=== PATIENT | male | born 1975 | race Caucasian/White ===

== ENCOUNTER 2018-07-10 16:21 | Emergency (ER) | payer OTHER ==
--- NOTE | 2018-07-10 16:29 | ER Report ---
History and Physical Time Seen By MD: 16:30 HPI/ROS CHIEF COMPLAINT: Laceration HISTORY OF PRESENT ILLNESS: 43-year-old male patient presents to emergency room with complaint of laceration. Patient states that he was working up in the was using a chainsaw. He states that the chainsaw brushed up against his knee. States it felt like he got slapped on the knee. He denied having any pain. He looked down and noticed a small spot of blood on his pants. At that time he did take a look and noted that he had a laceration on his knee. Patient states that he is unsure of his last tetanus shot. Patient states that he had very minimal bleeding. Allergies: Coded Allergies: No Known Drug Allergies (Unverified , 07/10/18) Home Meds Reported Medications Omeprazole Magnesium (PRILOSEC OTC) 20 Mg Tablet.dr, 1 TAB PO QDAY, TAB 07/10/18 Past Medical/Surgical History Patient has a past medical history of occasional alcohol use. Patient denies any surgical history. Reviewed Nurses Notes: Yes Constitutional Vital Sign - Last 24 Hours 07/10/18 07/10/18 16:27 17:00 Temp 97.7 Pulse 96 Resp 20 B/P (MAP) 130/94 109/82 (91) Pulse Ox 96 O2 Delivery Room Air Physical Exam General appearance: Alert no distress. Respiratory: Chest is non tender, lungs are clear to auscultation. Cardiac: Regular rate and rhythm. Skin: Patient does have a 2 similar laceration to the anterior aspect of the left knee. It does go into the subcutaneous tissue. It does not go down to the bone. DIFFERENTIAL DIAGNOSIS: After history and physical exam differential diagnosis was considered for laceration. Medical Decision Making ED Course/Re-evaluation ED Course Patient was admitted to an exam room, history of physical obtained. Differential diagnoses were considered. On examination patient has 2 cm laceration to the anterior aspect of the right knee. Does go into the subcutaneous tissue. However does not go deeper to the bone. The area was anesthetized, cleaned and repaired as described below. We'll go ahead and discharge patient home at this time. He is to change dressing as needed. His monitor for any signs of infection. Patient is to follow-up with his primary care provider in 7-10 days for suture removal. He is return to the emergency room if condition worsens. Patient verbalized understanding and agreement with plan. Procedure: Laceration repair. Verbal consent was obtained from the patient. The 2 cm laceration on the right knee was anesthetized in the usual fashion. The wound was scrubbed, draped and explored to its base with a gloved finger. There were no deep structures involved. No tendon injury was identified. The wound was repaired with 6 simple interrupted sutures using 4-0 Prolene material. The wound repair was simple. The procedure was performed by myself. Decision to Disposition Date: Jul 10, 2018 Decision to Disposition Time: 17:03 Depart Departure Latest Vital Signs Vital Signs Date Time Temp Pulse Resp B/P (MAP) Pulse Ox O2 Delivery O2 Flow Rate FiO2 07/10/18 17:00 109/82 (91) 07/10/18 16:27 97.7 96 20 96 Room Air Impression: Primary Impression: Knee laceration Condition: Improved Disposition: HOME OR SELF-CARE Patient Instructions: Laceration (ED) Additional Instructions: Keep wound dry for 48 hours. Follow up with your primary care provider in the next 7-10 days to have sutures removed. Monitor for signs of infection; redness, swelling, heat, discharge, increasing pain or red streaking. Take Tylenol or Ibuprofen as needed for pain. Return to the ER with any concerns. You may change dressing as needed. Problem Qualifiers Primary Impression: Knee laceration Encounter type: initial encounter Laterality: right Qualified Codes: S81.011A - Laceration without foreign body, right knee, initial encounter SOCRATES VEGA Jul 10, 2018 16:29
[2018-07-10] MEDS ORDERED: OMEP-218 PO (16:31)
[2018-07-10] MEDS ORDERED: DIPHTH/TETANUS/ACEL. PERTUSSIS IM ONLY ONE (16:35)
[2018-07-10 17:00] VITALS: BP 109/82
== END 2018-07-10 17:08 | disposition home or self-care (01) ==
LOC: ER 16:30
DX: S81.011A Laceration without foreign body, right knee, initial encounter (principal); W29.3XXA Contact with powered garden and outdoor hand tools and machinery, initial encounter
CPT/HCPCS: 90471; 90715; 99283